=== PATIENT | female | born 1980 | race Caucasian/White ===

== ENCOUNTER 2017-05-12 14:20 | Emergency (ER) | payer OTHER ==
[~2017-05-12] VITALS: Ht 165.1 cm; Wt 59.1 kg
[~2017-05-12 14:20] MED LIST: BCP TD; CEFTIN 250250 MG/TAB PO; CEFTIN250 M1 PO; DOXYCYCLINE 10100 MG PO; FLEXERIL10 MG PO; ILOTYCIN5 MG/GM OP; INDERAL 10MG10 MG PO; MACROBID 1100 MG/CAP PO; MUSCLE RELAXER; ORTHO TRI-CYCLE1 TA1 PO; ORTHO TRI-CYCLE1 TAB PO; PATANOL OPHTHALM5 ML OU; PYRIDIATE200 MG PO; PYRIDIUM200 M1 PO; REGLAN 10MG10 MG/TAB PO; TUSS PO; ULTRAM 50MG TAB50 MG PO; ULTRAM50 MG PO; VALIUM 2MG T2 MG/TAB PO; VICODIN 5/5001 UDTAB PO; ZOLOFT 100MG100 MG PO
[2017-05-12 14:22] VITALS: BP 137/85; TEMP 97.7
[2017-05-12] MEDS ORDERED: NORCO 325 MG-51 TAB PO (14:26)
[2017-05-12] MEDS ORDERED: LOPRESSOR 225 MG/TAB PO (14:27)
[2017-05-12] MEDS ORDERED: LEVOXYL0.1 MG PO (14:27)
[2017-05-12 15:38] VITALS: PULSE 84
== END 2017-05-12 15:38 | disposition home or self-care (01) ==
LOC: COL.ER 14:20
DX: E89.89 Other postprocedural endocrine and metabolic complications and disorders (principal)

== ENCOUNTER 2019-07-04 15:18 | Emergency (ER) | payer OTHER ==
[~2019-07-04] VITALS: Ht 165.1 cm; Wt 63.6 kg
[~2019-07-04 15:18] MED LIST changes: +LEVOXYL0.125 MG PO; +LOPRESSOR 225 MG/TAB PO; +NORCO 325 MG-51 TAB PO
[2019-07-04 15:32] VITALS: TEMP 98.3
[2019-07-04 16:18] LABS: BASO # 0.1 (0.0-0.2); BASO % 0.6 % (0.0-2.0); EOS # 0.1 (0.0-0.7); EOS % 0.9 % (0-4.0); GRAN # 6.2 (1.4-6.5); GRAN % 55.4 % (42.2-75.2); LYMPH # 4.3 (1.2-3.4); LYMPH % 38.3 % (20.0-51.0); MEAN CELL VOLUME 80 fl (80.0-100.0); MEAN CORPUSCULAR HEMOGLOBIN 26 pg (27.0-31.0); MEAN CORPUSCULAR HGB CONC 32 g/dl (33.0-37.0); MEAN PLATELET VOLUME 8.5 fl (7.4-10.4); MONO # 0.5 (0.1-0.6); MONO % 4.5 % (1.7-9.3); PLATELET COUNT 299 K/mm3 (130-400); RED BLOOD COUNT 3.89 M/mm3 (4.10-5.30); REDCELL DISTRIBUTION WIDTH-CV 17.1 % (11.5-14.5)
[2019-07-04] MEDS ORDERED: MOTRIN 200200 MG/TAB PO (16:20)
[2019-07-04 16:22] LABS: HEMATOCRIT 31.1 % (37.0-47.0)
[2019-07-04 16:33] LABS: ALANINE AMINOTRANSFERASE 9 U/L (9-52); ALBUMIN 3.9 gm/dL (3.5-5.0); ALKALINE PHOSPHATASE 66 U/L (50-136); ANION GAP 5 mmol/L (7-16); AST,SGOT 33 U/L (15-37); BILIRUBIN,TOTAL 0.3 mg/dL (0.0-1.0); BLOOD UREA NITROGEN 14 mg/dL (7-17); CALCIUM 9.1 mg/dL (8.4-10.2); CARBON DIOXIDE 26 mmol/L (22-30); CHLORIDE 106 mmol/L (98-107); CREATININE, serum 0.58 (0.52-1.25); GLUCOSE 78 mg/dL (74-106); LIPASE 61 U/L (23-300); POTASSIUM 3.6 mmol/L (3.4-5.0); SODIUM 137 mmol/L (137-145); TOTAL PROTEIN 6.3 gm/dL (6.4-8.2)
[2019-07-04 16:46] LABS: TROPONIN-I < 0.012 ng/mL (0.000-0.035)
[2019-07-04] MEDS ORDERED: PROTONIX20 MG PO (17:55)
[2019-07-04 18:23] VITALS: BP 127/91; PULSE 68
== END 2019-07-04 18:23 | disposition home or self-care (01) ==
LOC: COL.ER 15:18
PROVIDERS: Emergency Medicine
DX: R10.13 Epigastric pain (principal); R42 Dizziness and giddiness
CPT/HCPCS: C9113; J7030